=== PATIENT | female | born 1935 | race Caucasian/White ===

== ENCOUNTER 2016-09-04 08:20 | Inpatient (IN) | payer MEDICARE, BC ==
--- NOTE | 2016-09-04 12:37 | PCM.SN ---
- Free Text/Narrative Note: Patient's troponins x3 are negative. Patient will nausea after eating that was relieved by Mylanta and Prilosec.
[2016-09-04] MEDS ORDERED: Lactulose Soln 10 GM/15 ML 30 ML UD Cup PO PRN (13:39)
[2016-09-04] MEDS ORDERED: Vitamin B6-pyridOXINE 100 MG Tab PO SCH (13:45)
[2016-09-04] MEDS: Acetaminophen 325 MG Tab PO PRN ×2 (14:00→20:36)
[2016-09-04] MEDS ORDERED: Carboxymethylcellulose 0.5%/Glycerin 0.9% Ophth Soln 15 ML Bottle EYEBOTH PRN (14:15)
--- NOTE | 2016-09-04 14:22 | PCM.HP ---
H&P History of Present Illness - General Date of Service: 09/04/16 Admit Problem/Dx: Admission Diagnosis/Problem Admission Diagnosis/Problem Total replacement of hip Source of Information: Patient History Limitations: Reports: No limitations - History of Present Illness Initial Comments - Free Text/Narative: This is an 80-year-old female patient that had a right total knee arthroplasty in [place]. She was sent down for rehab, PT/OT. Patient is doing well. She is little bit of pain in her knee. No paresthesias or weakness. She denies chest pain or shortness of breath. right hip and low back Pain Score (Numeric/FACES): 3 - Related Data Allergies/Adverse Reactions: Allergies Allergy/AdvReac Type Severity Reaction Status Date / Time ciprofloxacin [From Cipro] Allergy Swollen Verified 09/04/16 12:33 Tongue ciprofloxacin HCl Allergy Swollen Verified 09/04/16 12:33 [From Cipro] Tongue hydrocodone Allergy Swollen Verified 09/04/16 12:33 Tongue Home Medications: Home Meds Dorzolamide/Timolol [Cosopt 2%-0.5% Ophth Soln] 1 drop EYEBOTH BID 06/21/13 [ History] Latanoprost 1 drop EYEBOTH BEDTIME 06/21/13 [History] Potassium Chloride 10 meq PO DAILY 06/21/13 [History] atorvaSTATin [Lipitor] 20 mg PO DAILY 06/21/13 [History] Acetaminophen [Tylenol] 650 mg PO Q4H PRN 09/04/16 [History] Aspirin [Ecotrin] 325 mg PO BID 09/04/16 [History] Azelastine [Optivar 0.05% Ophth Soln] 1 drop EYEBOTH BID 09/04/16 [History] Calcium Citrate/Vitamin D3 [Citracal + D Maximum Caplet] 1 tab PO DAILY [History] Carboxymethyl/Glycerin/Poly80 [Refresh Optive Advanced Drops] 1 drop OP QID PRN 09/04/16 [History] ClonazePAM [KlonoPIN] 0.5 mg PO BEDTIME PRN 09/04/16 [History] Lactulose [Cephulac] 30 ml PO TID PRN 09/04/16 [History] Multivitamin with Minerals [Multivitamins with Minerals] 1 each PO DAILY [History] Nitroglycerin [Nitrostat] 0.4 mg SL 5XDAY PRN #25 tab.subl 09/04/16 [Rx] Omeprazole Magnesium [Prilosec Otc] 20 mg PO DAILY #30 tablet.dr 09/04/16 [Rx] Triamterene/Hydrochlorothiazid [Triamterene-HCTZ 75-50 MG] 1 tab PO DAILY [History] metFORMIN [Glucophage] 500 mg PO BIDMEALS 09/04/16 [History] Past Medical History HEENT History: Reports: Allergic rhinitis, Glaucoma Cardiovascular History: Reports: High cholesterol, Hypertension Gastrointestinal History: Reports: Chronic constipation, GERD, Hemorrhoids, Hiatal hernia, Irritable bowel syndrome Genitourinary History: Reports: Urinary incontinence [employer] History: Reports: Musculoskeletal History: Reports: Arthritis, Fibromyalgia, Other (see below) Other Musculoskeletal History: NECK, HIP AND KNEES Psychiatric History: Reports: Depression Endocrine/Metabolic History: Reports: Diabetes, type II - Infectious Disease History Infectious Disease History: Reports: Chicken pox, Measles, Mumps, Pertussis ( whooping cough) - Past Surgical History HEENT Surgical History: Reports: Cataract surgery GI Surgical History: Reports: Appendectomy, Colonoscopy, EGD Musculoskeletal Surgical History: Reports: Joint replacement, Other (see below) Other Musculoskeletal Surgeries/Procedures:: right hip Social & Family History - Family History Family Medical History: Noncontributory - Tobacco Use Smoking Status *Q: Never Smoker Second Hand Smoke Exposure: No - Caffeine Use Caffeine Use: Reports: None - Alcohol Use Days Per Week of Alcohol Use: 0 - Recreational Drug Use Recreational Drug Use: No H&P Review of Systems - Review of Systems: Review Of Systems: See Below General: Reports: no symptoms HEENT: Reports: other (Chronic congestion) Pulmonary: Reports: no symptoms Cardiovascular: Reports: no symptoms Gastrointestinal: Reports: No symptoms Genitourinary: Reports: no symptoms Musculoskeletal: Reports: joint pain Skin: Reports: no symptoms Psychiatric: Reports: no symptoms Neurological: Reports: no symptoms Hematologic/Lymphatic: Reports: no symptoms Immunologic: Reports: no symptoms Exam - Exam Exam: See Below - Vital Signs Vital Signs: Last Vital Signs Temp 98.2 F 09/04/16 11:56 Pulse 76 09/04/16 11:56 Resp 18 09/04/16 11:56 BP 105/60 09/04/16 11:56 Pulse Ox 98 09/04/16 11:56 Weight: 160 lb - Exam General: alert, oriented, 4 HEENT: PERRLA, Conjunctiva clear, EOMI, Hearing intact, Posterior pharynx clear , Pupils reactive, TMs clear Neck: supple, trachea midline. No: carotid bruit Lungs: Clear to auscultation, Normal respiratory effort Cardiovascular: regular rate, regular rhythm, normal S1, normal S2. No: systolic murmur, diastolic murmur Abdomen: normal bowel sounds, soft. No: organomegaly, guarding, rigidity, rebound, tenderness Back Exam: normal inspection, full range of motion, NT Extremities: No: cyanosis, calf tenderness, edema Skin: warm, dry Neuro Extensive - Mental Status: alert, oriented x3, normal mood/affect, normal cognition Psychiatric: alert, normal affect, normal mood *Q Meaningful Use (ADM) - VTE *Q VTE Criteria *Q: - Stroke *Q Stroke Criteria *Q: - AMI *Q AMI Criteria *Q: - Problem List (1) S/P total knee arthroplasty SNOMED Code(s): 1587700662279, 264484411, 1611190416900 ICD Code: Z96.659 - PRESENCE OF UNSPECIFIED ARTIFICIAL KNEE JOINT Status: Acute Current Visit: Yes Problem List Initiated/Reviewed/Updated: Yes Orders Last 24hrs: Active Orders 24 hr Category Date Time Status Patient Status [ADT] Routine ADT 09/04/16 11:00 Active Accu Check [Blood Glucose Check, Bedside] [RC] 07,1730 Care 09/04/16 13:41 Active Activity as Tolerated [RC] .Routine Care 09/04/16 12:47 Active Communication Order [RC] Click to Edit Care 09/04/16 12:55 Active Elevate Extremity [RC] ASDIRECTED Care 09/04/16 12:47 Active May Shower [RC] .PRN Care 09/04/16 12:47 Active Ready for Discharge [RC] PER UNIT ROUTINE Care 09/04/16 12:41 Inactive OT Evaluation and Treatment [CONS] Routine Cons 09/04/16 11:00 Active PT Evaluation and Treatment [CONS] Routine Cons 09/04/16 11:00 Active Consistent Carbohydrate Diet [DIET] Diet 09/04/16 Lunch Active Acetaminophen [Tylenol] Med 09/04/16 13:39 Active 650 mg PO Q4H PRN Aspirin [Ecotrin] Med 09/04/16 21:00 Active 325 mg PO BID Calcium Carbonate/Vitamin D3 [Calcium Carbonate/Vitamin Med 09/05/16 09:00 Active D 1250 MG-200 Unit] 1 tab PO DAILY Carboxymethylcellulos/Glycerin [Refresh Optive] Med 09/04/16 14:15 Active 0 ml EYEBOTH QID PRN ClonazePAM [KlonoPIN] Med 09/04/16 13:57 Active 0.5 mg PO BEDTIME PRN Dorzolamide/Timolol [Cosopt 2%-0.5% Ophth Soln] Med 09/04/16 21:00 Active 0 ml EYEBOTH BID HCTZ/Triamterene [Maxzide 50-75 MG] Med 09/05/16 09:00 Active 1 each PO DAILY Ketotifen [Ketotifen 0.025% Ophth Soln] Med 09/04/16 21:00 Active 0 ml EYEBOTH BID Lactulose [Cephulac] Med 09/04/16 13:39 Active 20 gm PO TID PRN Latanoprost [Xalatan 0.005% Ophth Soln] Med 09/04/16 21:00 Active 0 ml EYEBOTH BEDTIME Multivitamins,Therapeutic [Thera] Med 09/05/16 09:00 Active 1 each PO DAILY Omeprazole Med 09/05/16 06:00 Active 20 mg PO 0600 Potassium Chloride [Klor-Con 10] Med 09/05/16 09:00 Active 10 meq PO DAILY atorvaSTATin [Lipitor] Med 09/05/16 09:00 Active 20 mg PO DAILY metFORMIN [Glucophage] Med 09/04/16 18:00 Active 500 mg PO BIDMEALS Antiembolic Hose [OM.PC] Routine Oth 09/04/16 12:47 Ordered Ice Therapy [OM.PC] Routine Oth 09/04/16 12:47 Ordered Occlusive Dressing [OM.PC] Routine Oth 09/04/16 12:47 Ordered Weight bearing status [OM.PC] Routine Oth 09/04/16 12:47 Ordered Resuscitation Status Routine Resus Stat 09/04/16 12:47 Ordered Medication Orders Acetaminophen (Tylenol) 650 mg PO Q4H PRN PRN Reason: Pain Last Admin: 09/04/16 14:00 Dose: 650 mg Aspirin (Ecotrin) 325 mg PO BID [facility] Stop: 10/06/16 09:01 Atorvastatin Calcium (Lipitor) 20 mg PO DAILY [facility] Calcium Carbonate (Calcium Carbonate/Vitamin D 1250 Mg-200 Unit) 1 tab PO DAILY [facility] Carboxymethylcellulose (Refresh Optive) 0 ml EYEBOTH QID PRN PRN Reason: DRY EYES Clonazepam (Klonopin) 0.5 mg PO BEDTIME PRN PRN Reason: Sleep Dorzolamide/Timolol (Cosopt 2%-0.5% Ophth Soln) 0 ml EYEBOTH BID [place] Ketotifen Fumarate (Ketotifen 0.025% Ophth Soln) 0 ml EYEBOTH BID [place] Lactulose (Cephulac) 20 gm PO TID PRN PRN Reason: Constipation Latanoprost (Xalatan 0.005% Ophth Soln) 0 ml EYEBOTH BEDTIME [place] Metformin HCl (Glucophage) 500 mg PO BIDMEALS [facility] Multivitamins (Thera) 1 each PO DAILY [facility] Omeprazole (Omeprazole) 20 mg PO 0600 [place] Potassium Chloride (Klor-Con 10) 10 meq PO DAILY [facility] Triamterene/HCTZ (Maxzide 50-75 Mg) 1 each PO DAILY [facility] Assessment/Plan Comment:: 1. Admitted to swing bed. 2. See orthopedic orders that came from [place]. Reviewed. 3. PT/OT. 4. Diabetic diet with checking blood sugars twice a day. 5. Continue medications that were in [place].
[2016-09-04] MEDS: metFORMIN 500 MG Tab PO SCH (17:21)
[2016-09-04] MEDS: Latanoprost 0.005% Ophth Soln 2.5 ML Bottle EYEBOTH SCH (20:34)
[2016-09-04] MEDS: Aspirin 325 MG Tab.EC PO SCH (20:38)
[2016-09-04] MEDS: Ketotifen 0.025% Ophth Soln 5 ML Bottle EYEBOTH SCH (20:39)
[2016-09-04] MEDS: Dorzolamide/Timolol 2%-0.5% Ophth Soln 10 ML Bottle EYEBOTH SCH (20:40)
[2016-09-04] MEDS: ClonazePAM 0.5 MG Tab PO PRN (21:52)
[2016-09-05] MEDS: Omeprazole 20 MG Cap.CR PO SCH (06:10)
[2016-09-05] MEDS: Acetaminophen 325 MG Tab PO PRN ×2 (07:46→21:09)
[2016-09-05] MEDS: metFORMIN 500 MG Tab PO SCH ×2 (07:48→17:21)
[2016-09-05] MEDS: Dorzolamide/Timolol 2%-0.5% Ophth Soln 10 ML Bottle EYEBOTH SCH ×2 (08:41→21:07)
[2016-09-05] MEDS: Multivitamins,Therapeutic Tab PO SCH (08:42)
[2016-09-05] MEDS: Hydrochlorothiazide/Triamterene 50-75 MG Tab PO SCH (08:42)
[2016-09-05] MEDS: Aspirin 325 MG Tab.EC PO SCH ×2 (08:42→21:08)
[2016-09-05] MEDS: Calcium Carbonate/Vitamin D3 1250 MG-200 Unit Tab PO SCH (08:42)
[2016-09-05] MEDS: Potassium Chloride 10 MEQ Tab.ER PO SCH (08:42)
[2016-09-05] MEDS: atorvaSTATin 20 MG Tab PO SCH (08:42)
[2016-09-05] MEDS: Ketotifen 0.025% Ophth Soln 5 ML Bottle EYEBOTH SCH ×2 (08:45→21:08)
[2016-09-05] MEDS ORDERED: Aspirin 81 MG Tab.Chew PO SCH (09:00)
[2016-09-05] MEDS: Latanoprost 0.005% Ophth Soln 2.5 ML Bottle EYEBOTH SCH (21:09)
[2016-09-05] MEDS: ClonazePAM 0.5 MG Tab PO PRN (21:09)
[2016-09-06] MEDS: Omeprazole 20 MG Cap.CR PO SCH (05:53)
[2016-09-06] MEDS: Dorzolamide/Timolol 2%-0.5% Ophth Soln 10 ML Bottle EYEBOTH SCH ×2 (08:36→20:25)
[2016-09-06] MEDS: Multivitamins,Therapeutic Tab PO SCH (08:36)
[2016-09-06] MEDS: metFORMIN 500 MG Tab PO SCH ×2 (08:36→17:40)
[2016-09-06] MEDS: atorvaSTATin 20 MG Tab PO SCH (08:36)
[2016-09-06] MEDS: Calcium Carbonate/Vitamin D3 1250 MG-200 Unit Tab PO SCH (08:36)
[2016-09-06] MEDS: Aspirin 325 MG Tab.EC PO SCH ×2 (08:36→20:24)
[2016-09-06] MEDS: Hydrochlorothiazide/Triamterene 50-75 MG Tab PO SCH (08:36)
[2016-09-06] MEDS: Ketotifen 0.025% Ophth Soln 5 ML Bottle EYEBOTH SCH ×2 (08:36→20:24)
[2016-09-06] MEDS: Potassium Chloride 10 MEQ Tab.ER PO SCH ×2 (08:37→17:40)
[2016-09-06] MEDS: Acetaminophen 325 MG Tab PO PRN (10:31)
[2016-09-06] MEDS: Latanoprost 0.005% Ophth Soln 2.5 ML Bottle EYEBOTH SCH (20:24)
[2016-09-06] MEDS: ClonazePAM 0.5 MG Tab PO PRN (21:47)
[2016-09-07] MEDS: Omeprazole 20 MG Cap.CR PO SCH (06:00)
[2016-09-07] MEDS: metFORMIN 500 MG Tab PO SCH ×2 (08:24→18:03)
[2016-09-07] MEDS: Calcium Carbonate/Vitamin D3 1250 MG-200 Unit Tab PO SCH (08:25)
[2016-09-07] MEDS: Potassium Chloride 10 MEQ Tab.ER PO SCH ×2 (08:25→18:03)
[2016-09-07] MEDS: Dorzolamide/Timolol 2%-0.5% Ophth Soln 10 ML Bottle EYEBOTH SCH ×2 (08:25→20:44)
[2016-09-07] MEDS: Aspirin 325 MG Tab.EC PO SCH ×2 (08:26→20:46)
[2016-09-07] MEDS: Ketotifen 0.025% Ophth Soln 5 ML Bottle EYEBOTH SCH ×2 (08:26→20:47)
[2016-09-07] MEDS: atorvaSTATin 20 MG Tab PO SCH (08:27)
[2016-09-07] MEDS: Hydrochlorothiazide/Triamterene 50-75 MG Tab PO SCH (08:27)
[2016-09-07] MEDS: Multivitamins,Therapeutic Tab PO SCH (08:27)
[2016-09-07] MEDS ORDERED: Aluminum Hydroxide/Magnesium Hydroxide Susp 30 ML Cup PO PRN (08:55)
[2016-09-07] MEDS ORDERED: Ondansetron 4 MG Tab.DIS PO PRN (08:56)
[2016-09-07] MEDS: Latanoprost 0.005% Ophth Soln 2.5 ML Bottle EYEBOTH SCH (20:47)
[2016-09-07] MEDS: ClonazePAM 0.5 MG Tab PO PRN (20:48)
[2016-09-08] MEDS: Omeprazole 20 MG Cap.CR PO SCH (05:15)
[2016-09-08] MEDS: Dorzolamide/Timolol 2%-0.5% Ophth Soln 10 ML Bottle EYEBOTH SCH ×2 (08:16→20:59)
[2016-09-08] MEDS: Potassium Chloride 10 MEQ Tab.ER PO SCH ×2 (08:17→18:33)
[2016-09-08] MEDS: metFORMIN 500 MG Tab PO SCH (08:17)
[2016-09-08] MEDS: Calcium Carbonate/Vitamin D3 1250 MG-200 Unit Tab PO SCH (08:18)
[2016-09-08] MEDS: Multivitamins,Therapeutic Tab PO SCH (08:23)
[2016-09-08] MEDS: Hydrochlorothiazide/Triamterene 50-75 MG Tab PO SCH (08:24)
[2016-09-08] MEDS: atorvaSTATin 20 MG Tab PO SCH (08:24)
[2016-09-08] MEDS: Aspirin 325 MG Tab.EC PO SCH ×2 (08:25→20:58)
[2016-09-08] MEDS: Ketotifen 0.025% Ophth Soln 5 ML Bottle EYEBOTH SCH ×2 (08:26→21:07)
--- NOTE | 2016-09-08 15:43 | PN ---
DATE SEEN: 09/08/2016 SUBJECTIVE: This is an 80-year-old female with a history of type 2 diabetes mellitus and recent right total hip arthroplasty. She is complaining of loose stools yesterday and today. She has had no fever, chills, or night sweats. Denies any significant abdominal pain. She says she does have a history of irritable bowel syndrome. She does use metformin along with omeprazole. No blood or pus in the stools. No significant cramps or other abnormalities have been noted. She said she did get a fair amount of cathartic medication while in [place]; that was almost a week ago, and she is on no stool softeners or laxatives at least here. OBJECTIVE: GENERAL: She appears quite comfortable in no acute distress. VITAL SIGNS: Afebrile. Blood pressure 112/52, pulse is 76 and regular, and respirations were 18. HEENT: Unremarkable. CHEST: Clear. CARDIOVASCULAR: Unremarkable without gallop or rub. ABDOMEN: Soft. There was no specific point tenderness. No rebound or rigidity. EXTREMITIES: Negative. IMPRESSION: Loose stools may be either viral versus combination of her medications, including the omeprazole and metformin. PLAN: Because of her age, I have advised her that we may want to discontinue the metformin anyway. Her blood sugars have been borderline elevated, despite the medications, and in order to be effective, we actually have to increase her medicines. At least for now, we are going to stop the metformin and see if the loose stools improve. I will switch over to glimepiride 1 mg in the morning and watch her blood sugars. We will follow from there. /[id number] /MODL
[2016-09-08] MEDS: ClonazePAM 0.5 MG Tab PO PRN (20:57)
[2016-09-08] MEDS: Latanoprost 0.005% Ophth Soln 2.5 ML Bottle EYEBOTH SCH (21:07)
[2016-09-09] MEDS: Omeprazole 20 MG Cap.CR PO SCH (06:32)
[2016-09-09] MEDS: Glimepiride 2 MG Tab PO SCH (09:26)
[2016-09-09] MEDS: Potassium Chloride 10 MEQ Tab.ER PO SCH ×2 (09:26→17:53)
[2016-09-09] MEDS: Multivitamins,Therapeutic Tab PO SCH (09:27)
[2016-09-09] MEDS: Hydrochlorothiazide/Triamterene 50-75 MG Tab PO SCH (09:27)
[2016-09-09] MEDS: atorvaSTATin 20 MG Tab PO SCH (09:27)
[2016-09-09] MEDS: Aspirin 325 MG Tab.EC PO SCH ×2 (09:27→21:16)
[2016-09-09] MEDS: Ketotifen 0.025% Ophth Soln 5 ML Bottle EYEBOTH SCH ×2 (09:27→21:17)
[2016-09-09] MEDS: Dorzolamide/Timolol 2%-0.5% Ophth Soln 10 ML Bottle EYEBOTH SCH ×2 (09:27→21:16)
[2016-09-09] MEDS: Calcium Carbonate/Vitamin D3 1250 MG-200 Unit Tab PO SCH (09:27)
[2016-09-09] MEDS: Acetaminophen 325 MG Tab PO PRN ×2 (09:29→21:31)
[2016-09-09] MEDS: Latanoprost 0.005% Ophth Soln 2.5 ML Bottle EYEBOTH SCH (21:25)
[2016-09-09] MEDS: ClonazePAM 0.5 MG Tab PO PRN (21:27)
[2016-09-10] MEDS: Omeprazole 20 MG Cap.CR PO SCH (06:30)
[2016-09-10] MEDS: Glimepiride 2 MG Tab PO SCH (08:19)
[2016-09-10] MEDS: Aspirin 325 MG Tab.EC PO SCH ×2 (08:21→20:27)
[2016-09-10] MEDS: Potassium Chloride 10 MEQ Tab.ER PO SCH ×2 (08:21→18:57)
[2016-09-10] MEDS: Calcium Carbonate/Vitamin D3 1250 MG-200 Unit Tab PO SCH (08:21)
[2016-09-10] MEDS: Hydrochlorothiazide/Triamterene 50-75 MG Tab PO SCH (08:22)
[2016-09-10] MEDS: Multivitamins,Therapeutic Tab PO SCH (08:22)
[2016-09-10] MEDS: Acetaminophen 325 MG Tab PO PRN ×2 (08:22→15:25)
[2016-09-10] MEDS: atorvaSTATin 20 MG Tab PO SCH (08:22)
[2016-09-10] MEDS: Dorzolamide/Timolol 2%-0.5% Ophth Soln 10 ML Bottle EYEBOTH SCH ×2 (08:24→20:24)
[2016-09-10] MEDS: Ketotifen 0.025% Ophth Soln 5 ML Bottle EYEBOTH SCH ×2 (08:25→20:27)
[2016-09-10] MEDS: Latanoprost 0.005% Ophth Soln 2.5 ML Bottle EYEBOTH SCH (20:27)
[2016-09-10] MEDS: ClonazePAM 0.5 MG Tab PO PRN (21:04)
[2016-09-11] MEDS: Omeprazole 20 MG Cap.CR PO SCH (06:18)
[2016-09-11] MEDS: Glimepiride 2 MG Tab PO SCH (08:03)
[2016-09-11] MEDS: Potassium Chloride 10 MEQ Tab.ER PO SCH ×2 (08:05→18:52)
[2016-09-11] MEDS: Calcium Carbonate/Vitamin D3 1250 MG-200 Unit Tab PO SCH (08:05)
[2016-09-11] MEDS: Dorzolamide/Timolol 2%-0.5% Ophth Soln 10 ML Bottle EYEBOTH SCH ×2 (08:06→20:27)
[2016-09-11] MEDS: Aspirin 325 MG Tab.EC PO SCH ×2 (08:07→20:28)
[2016-09-11] MEDS: atorvaSTATin 20 MG Tab PO SCH (08:08)
[2016-09-11] MEDS: Multivitamins,Therapeutic Tab PO SCH (08:09)
[2016-09-11] MEDS: Hydrochlorothiazide/Triamterene 50-75 MG Tab PO SCH (08:09)
[2016-09-11] MEDS: Ketotifen 0.025% Ophth Soln 5 ML Bottle EYEBOTH SCH ×2 (08:10→20:27)
[2016-09-11] MEDS: Acetaminophen 325 MG Tab PO PRN (18:56)
[2016-09-11] MEDS: Latanoprost 0.005% Ophth Soln 2.5 ML Bottle EYEBOTH SCH (20:28)
[2016-09-11] MEDS: ClonazePAM 0.5 MG Tab PO PRN (21:46)
[2016-09-12] MEDS: Omeprazole 20 MG Cap.CR PO SCH (06:24)
[2016-09-12] MEDS: Glimepiride 2 MG Tab PO SCH (09:15)
[2016-09-12] MEDS: Multivitamins,Therapeutic Tab PO SCH (09:15)
[2016-09-12] MEDS: Potassium Chloride 10 MEQ Tab.ER PO SCH (09:15)
[2016-09-12] MEDS: Ketotifen 0.025% Ophth Soln 5 ML Bottle EYEBOTH SCH (09:16)
[2016-09-12] MEDS: Aspirin 325 MG Tab.EC PO SCH (09:16)
[2016-09-12] MEDS: Dorzolamide/Timolol 2%-0.5% Ophth Soln 10 ML Bottle EYEBOTH SCH (09:16)
[2016-09-12] MEDS: Calcium Carbonate/Vitamin D3 1250 MG-200 Unit Tab PO SCH (09:16)
[2016-09-12] MEDS: Hydrochlorothiazide/Triamterene 50-75 MG Tab PO SCH (09:17)
[2016-09-12] MEDS: atorvaSTATin 20 MG Tab PO SCH (09:17)
[2016-09-12 10:58] VITALS: BP 109/61
--- NOTE | 2016-09-12 11:44 | PN ---
DATE SEEN: 09/12/2016 SUBJECTIVE: Jeri Jones is an 80-year-old female seen today as a swing-bed patient. She underwent right total hip arthroplasty on 09/04/2016, transferred here on 09/08/2016, comfortable and doing well. Medications reviewed and appropriate. Laboratory studies, random glucose are noted. Metformin had been stopped due to diarrhea. Amaryl has been instituted. Otherwise, doing well. OBJECTIVE: VITAL SIGNS: 36.9, 74, 109/61, 16 is the respiration, 98%. GENERAL: Appears comfortable. CHEST: Clear. HEART: Regular. ABDOMEN: Right hip surgical scar well healed. No complicating issues. ASSESSMENT: Status post right total hip arthroplasty, rehab in place. PLAN: Discharge today, complementary care and well being, follow up with provider of record in [place]. /[id number] CUATE/MELCHOR
--- NOTE | 2016-09-15 15:31 | DISCH ---
DISCHARGE DATE: 09/12/2016 HISTORY: Jeri Jones is an 80-year-old female, who had a recent stay at [facility] for rehab of right total hip arthroplasty. Doing well. PT has been actively involved. Ambulation skills have been comfortable. Pain has been controlled with Tylenol, and she is in good spirits. LABORATORY STUDIES: Random glucoses only. PHYSICAL EXAMINATION: CHEST: Clear. HEART: Regular. ABDOMEN: Benign. EXTREMITIES: Wound right lateral hip without complaint. Edges well apposed. No complicating issue. ASSESSMENT: Rehab, right total hip arthroplasty. PLAN: Discharge home with lengthy instructions, Home Health will be involved. OT, PT, RN, complementary care and well being, proceed accordingly. /[id number] CUATE/MELCHOR
== END 2016-09-12 14:45 | disposition home health service (06) | DRG 561 ==
LOC: FB.MS 11:53
PROVIDERS: ADMIT Family Medicine; ATTEND Family Medicine
DX: Z47.1 Aftercare following joint replacement surgery (principal); Z96.641 Presence of right artificial hip joint; H40.9 Unspecified glaucoma; E78.5 Hyperlipidemia, unspecified; I10 Essential (primary) hypertension; K21.9 Gastro-esophageal reflux disease without esophagitis; M79.7 Fibromyalgia; F32.9 Major depressive disorder, single episode, unspecified; E11.9 Type 2 diabetes mellitus without complications; Z79.84 Long term (current) use of oral hypoglycemic drugs; R19.7 Diarrhea, unspecified; K58.9 Irritable bowel syndrome, unspecified
CPT/HCPCS: 36415; 80048; 82962; 85027; 97110-GP; 97112-GP; 97116-GP; 97162-GP; 97165-GO; 97530-GO; 97530-GP; 97535-GO; A9270-GY

== ENCOUNTER 2017-04-13 11:03 | Inpatient (IN) | payer MEDICARE, BC ==
[2017-04-13] MEDS ORDERED: FLU Vacc QS 2017-18 (36mos UP)/PF 60 MCG/0.5 ML Syringe IM ONE ×2 (14:06→14:15)
[2017-04-13] MEDS ORDERED: traMADol 50 MG Tab PO PRN (20:02)
[2017-04-13] MEDS ORDERED: Carboxymethylcellulose 0.5%/Glycerin 0.9% Ophth Soln 15 ML Bottle EYEBOTH PRN (20:45)
[2017-04-13] MEDS ORDERED: Latanoprost 0.005% Ophth Soln 2.5 ML Bottle EYEBOTH SCH (21:00)
[2017-04-13] MEDS: Acetaminophen 325 MG Tab PO SCH (22:14)
[2017-04-13] MEDS: Aspirin 325 MG Tab.EC PO SCH (22:15)
[2017-04-13] MEDS: ClonazePAM 1 MG Tab PO PRN (22:23)
[2017-04-14] MEDS: Azelastine 0.05% Ophth Soln 6 ML Bottle EYEBOTH SCH ×3 (00:17→20:52)
[2017-04-14] MEDS: Dorzolamide/Timolol 2%-0.5% Ophth Soln 10 ML Bottle EYEBOTH SCH ×3 (00:17→20:53)
[2017-04-14] MEDS: Celecoxib 200 MG Cap PO SCH ×3 (00:21→20:51)
[2017-04-14] MEDS: Acetaminophen 325 MG Tab PO SCH ×4 (02:17→20:51)
[2017-04-14] MEDS: Pantoprazole 40 MG Tab.CR PO SCH (06:30)
[2017-04-14] MEDS ORDERED: Carboxymethylcellulose 0.5%/Glycerin 0.9% Ophth Soln 15 ML Bottle EYEBOTH PRN (08:19)
[2017-04-14] MEDS: glipiZIDE 5 MG Tab PO SCH ×2 (09:04→17:15)
[2017-04-14] MEDS: Hydrochlorothiazide/Triamterene 50-75 MG Tab PO SCH (09:05)
[2017-04-14] MEDS: Potassium Chloride 10 MEQ Tab.ER PO SCH (09:05)
[2017-04-14] MEDS: Citalopram 20 MG Tab PO SCH (09:05)
[2017-04-14] MEDS: Aspirin 325 MG Tab.EC PO SCH ×2 (09:05→20:52)
[2017-04-14] MEDS: Vitamin B6-pyridOXINE 100 MG Tab PO SCH (09:06)
[2017-04-14] MEDS: metFORMIN 1,000 MG Tab PO SCH ×2 (09:10→17:15)
[2017-04-14] MEDS: atorvaSTATin 20 MG Tab PO SCH (09:10)
[2017-04-14] MEDS ORDERED: hydrOXYzine HCl 25 MG Tab PO PRN (10:28)
--- NOTE | 2017-04-14 13:51 | PREOP ---
ADMISSION DATE: 04/13/2017 HISTORY OF PRESENT ILLNESS: Jeri Jones is an 81-year-old female, admitted for postoperative care. Underwent left total hip arthroplasty. Doing well, at regard PT/OT actively involved. Vital signs are stable. No complicating issues. Wound was examined and free of any pathology. All looks well. /[id number] CUATE/MELCHOR
--- NOTE | 2017-04-14 16:20 | HP ---
ADMISSION DATE: 04/13/2017 HISTORY OF PRESENT ILLNESS: Jeri Jones is an 81-year-old, female, admitted to [facility]. She had a recent acute care hospital stay, 04/09/2017 to 04/13/2017, under the care of Dr. Ashwin Fulton, Orthopedics. She underwent left total hip arthroplasty, acute blood loss anemia and no transfusion required, medical treatment of her diabetes, and did well. Please see discharge summary provided by Yecenia Echols, adult hospitalist; Dr. Farris; and Dr. Fulton, surgical provider of record. Discharged in good condition. She was admitted to [facility] for swing bed care. Feeling well in that regard. Pain is reasonably well controlled. MEDICATIONS: Please see medication reconciliation list. ALLERGIES: Ciprofloxacin, hydrocodone. No other environmental or latex allergies. PAST MEDICAL HISTORY: Significant for multiple surgeries including right total hip arthroplasty, August 2016; bilateral cataract surgery; abdominal hysterectomy; bilateral oophorectomy remotely. Ongoing medical problems include treated hypertension, mood disorder, hyperlipidemia, and diabetes mellitus. SOCIAL HISTORY: Resident of [facility], worked in the past [employer] Never smoked. Nil alcohol consumption. No illicit drug use. . REVIEW OF SYSTEMS: Feeling generally well. Pain is controlled. PHYSICAL EXAMINATION: VITAL SIGNS: Stable and documented. CONSTITUTIONAL: Appears well. HEENT: Reveal funduscopic benign. Bright TMs. Clear nasal discharge. Mouth and oropharynx clear. CHEST: Clear in all lung harrison. HEART: Regular without ectopy or murmur. ABDOMEN: Benign. No hepatosplenomegaly. Well-healed surgical scar. Left hip surgical scar intact. Minimal ecchymoses. EXTREMITIES: Well perfused. Reflexes symmetric. Sensation intact. ASSESSMENT: Postoperative care, total hip arthroplasty, rehab in place. PLAN: Medications, care, and treatment appropriate. Intervention care, close observation. Pain control, PT, and therapy. /[id number] CUATE/MELCHOR
[2017-04-14] MEDS: Latanoprost 0.005% Ophth Soln 2.5 ML Bottle EYEBOTH SCH (20:53)
[2017-04-14] MEDS: ClonazePAM 1 MG Tab PO PRN (22:20)
[2017-04-15] MEDS: Acetaminophen 325 MG Tab PO SCH ×4 (02:29→21:03)
[2017-04-15] MEDS: Pantoprazole 40 MG Tab.CR PO SCH (06:34)
[2017-04-15] MEDS: metFORMIN 1,000 MG Tab PO SCH ×2 (08:45→17:34)
[2017-04-15] MEDS: glipiZIDE 5 MG Tab PO SCH ×2 (08:45→17:34)
[2017-04-15] MEDS: Celecoxib 200 MG Cap PO SCH ×2 (08:47→21:04)
[2017-04-15] MEDS: atorvaSTATin 20 MG Tab PO SCH (08:47)
[2017-04-15] MEDS: Dorzolamide/Timolol 2%-0.5% Ophth Soln 10 ML Bottle EYEBOTH SCH ×2 (08:47→21:04)
[2017-04-15] MEDS: Aspirin 325 MG Tab.EC PO SCH ×2 (08:47→21:04)
[2017-04-15] MEDS: Citalopram 20 MG Tab PO SCH (08:47)
[2017-04-15] MEDS: Potassium Chloride 10 MEQ Tab.ER PO SCH (08:47)
[2017-04-15] MEDS: Azelastine 0.05% Ophth Soln 6 ML Bottle EYEBOTH SCH ×2 (08:48→21:04)
[2017-04-15] MEDS: Vitamin B6-pyridOXINE 100 MG Tab PO SCH (08:48)
[2017-04-15] MEDS: Hydrochlorothiazide/Triamterene 50-75 MG Tab PO SCH (08:48)
--- NOTE | 2017-04-15 10:41 | PN ---
DATE SEEN: 04/15/2017 SUBJECTIVE: Jeri Jones is an 81-year-old, female, admitted with postoperative care. Underwent a right total hip arthroplasty under the care of Dr. Ashwin Fulton [facility]. Doing well in that regard. Up, ambulating, doing well. PT/OT is actively involved. Accu-Cheks: 157, 182, 192, 189, and 144. MEDICATIONS: Reviewed and appropriate. She is on glipizide and metformin for her diabetes. No interval change in the meantime. PHYSICAL EXAMINATION: VITAL SIGNS: Stable. MUSCULOSKELETAL: Wound healing well without conflict. Postoperative recovery and rehab. Total hip arthroplasty. PLAN: Medications, care, and treatment on board. Analgesics appropriate. Physical therapy in place. /[id number] CUATE/MELCHOR
[2017-04-15] MEDS: Latanoprost 0.005% Ophth Soln 2.5 ML Bottle EYEBOTH SCH (21:04)
[2017-04-15] MEDS: ClonazePAM 1 MG Tab PO PRN (22:45)
[2017-04-16] MEDS: Acetaminophen 325 MG Tab PO SCH ×4 (02:01→21:05)
[2017-04-16] MEDS: Pantoprazole 40 MG Tab.CR PO SCH (06:31)
[2017-04-16] MEDS: glipiZIDE 5 MG Tab PO SCH ×2 (08:38→18:47)
[2017-04-16] MEDS: metFORMIN 1,000 MG Tab PO SCH ×2 (08:38→18:48)
[2017-04-16] MEDS: Celecoxib 200 MG Cap PO SCH ×2 (08:39→21:07)
[2017-04-16] MEDS: Citalopram 20 MG Tab PO SCH (08:40)
[2017-04-16] MEDS: Dorzolamide/Timolol 2%-0.5% Ophth Soln 10 ML Bottle EYEBOTH SCH ×2 (08:40→21:07)
[2017-04-16] MEDS: Aspirin 325 MG Tab.EC PO SCH ×2 (08:41→21:07)
[2017-04-16] MEDS: Potassium Chloride 10 MEQ Tab.ER PO SCH (08:41)
[2017-04-16] MEDS: Azelastine 0.05% Ophth Soln 6 ML Bottle EYEBOTH SCH ×2 (08:42→21:08)
[2017-04-16] MEDS: atorvaSTATin 20 MG Tab PO SCH (08:42)
[2017-04-16] MEDS: Hydrochlorothiazide/Triamterene 50-75 MG Tab PO SCH (08:42)
[2017-04-16] MEDS: Vitamin B6-pyridOXINE 100 MG Tab PO SCH (08:43)
--- NOTE | 2017-04-16 11:21 | PN ---
DATE SEEN: 04/16/2017 SUBJECTIVE: Jeri Jones is an 81-year-old female seen today for followup. She had a recent left total hip arthroplasty. Dr. Fulton provider of record. Doing well. PT/OT, support services ongoing and doing well in that regard. OBJECTIVE: Wound was examined, free of complicating issue. In good spirits otherwise. LABORATORY STUDIES: Accu-Cheks are reasonable at 128, 150, 150, and 133. ASSESSMENT AND PLAN: We will continue present care and therapy plan until Thursday. /[id number] CUATE/MELCHOR
[2017-04-16] MEDS: Latanoprost 0.005% Ophth Soln 2.5 ML Bottle EYEBOTH SCH (21:08)
[2017-04-16] MEDS: ClonazePAM 1 MG Tab PO PRN (21:32)
[2017-04-17] MEDS: Acetaminophen 325 MG Tab PO SCH ×4 (02:16→19:49)
[2017-04-17] MEDS: Pantoprazole 40 MG Tab.CR PO SCH (06:34)
[2017-04-17] MEDS: metFORMIN 1,000 MG Tab PO SCH ×2 (08:34→18:02)
[2017-04-17] MEDS: glipiZIDE 5 MG Tab PO SCH ×2 (08:34→18:02)
[2017-04-17] MEDS: Dorzolamide/Timolol 2%-0.5% Ophth Soln 10 ML Bottle EYEBOTH SCH ×2 (08:35→21:31)
[2017-04-17] MEDS: Citalopram 20 MG Tab PO SCH (08:35)
[2017-04-17] MEDS: Celecoxib 200 MG Cap PO SCH ×2 (08:35→21:42)
[2017-04-17] MEDS: Aspirin 325 MG Tab.EC PO SCH ×2 (08:35→21:23)
[2017-04-17] MEDS: Azelastine 0.05% Ophth Soln 6 ML Bottle EYEBOTH SCH ×2 (08:36→21:26)
[2017-04-17] MEDS: Potassium Chloride 10 MEQ Tab.ER PO SCH (08:36)
[2017-04-17] MEDS: atorvaSTATin 20 MG Tab PO SCH (08:36)
[2017-04-17] MEDS: Hydrochlorothiazide/Triamterene 50-75 MG Tab PO SCH (08:36)
[2017-04-17] MEDS: Vitamin B6-pyridOXINE 100 MG Tab PO SCH (08:37)
--- NOTE | 2017-04-17 08:38 | PN ---
DATE SEEN: 04/17/2017 SUBJECTIVE: Jeri Jones is a delightful 81-year-old female seen today for review. In the swing bed for postoperative left total hip arthroplasty, doing well in terms of pain and discomfort. Up ambulating and doing well. PT and OT are comfortable with her well being. Glucose is comfortable 133, 127, 118, 143. Meds reviewed and appropriate. OBJECTIVE: VITAL SIGNS: Noted. EXTREMITIES: Lateral hip wound dressing removed, healing well. POSTOPERATIVE CARE: Left total hip arthroplasty, rehab in place. PLAN: All looks well, continue intervention and care. Plan discharge on Thursday. ADDENDUM: Cold sore, left upper lip will be treated accordingly. /[id number] CUATE/MELCHOR
[2017-04-17] MEDS: valACYclovir 1,000 MG Tab PO SCH ×3 (09:27→21:22)
[2017-04-17] MEDS ORDERED: Celecoxib 100 MG Cap ONE (21:18)
[2017-04-17] MEDS: Latanoprost 0.005% Ophth Soln 2.5 ML Bottle EYEBOTH SCH (21:21)
[2017-04-17] MEDS: ClonazePAM 1 MG Tab PO PRN (21:32)
[2017-04-18] MEDS: Acetaminophen 325 MG Tab PO SCH ×3 (06:50→14:18)
[2017-04-18] MEDS: Pantoprazole 40 MG Tab.CR PO SCH (07:47)
[2017-04-18] MEDS: Azelastine 0.05% Ophth Soln 6 ML Bottle EYEBOTH SCH ×2 (08:58→21:10)
[2017-04-18] MEDS: Dorzolamide/Timolol 2%-0.5% Ophth Soln 10 ML Bottle EYEBOTH SCH ×2 (08:58→21:09)
[2017-04-18] MEDS: metFORMIN 1,000 MG Tab PO SCH ×2 (08:59→17:50)
[2017-04-18] MEDS: glipiZIDE 5 MG Tab PO SCH ×2 (08:59→17:50)
[2017-04-18] MEDS: Citalopram 20 MG Tab PO SCH (09:02)
[2017-04-18] MEDS: Potassium Chloride 10 MEQ Tab.ER PO SCH (09:03)
[2017-04-18] MEDS: atorvaSTATin 20 MG Tab PO SCH (09:03)
[2017-04-18] MEDS: Aspirin 325 MG Tab.EC PO SCH ×2 (09:03→21:10)
[2017-04-18] MEDS: Hydrochlorothiazide/Triamterene 50-75 MG Tab PO SCH (09:03)
[2017-04-18] MEDS: Vitamin B6-pyridOXINE 100 MG Tab PO SCH (09:04)
[2017-04-18] MEDS: Celecoxib 200 MG Cap PO SCH (09:07)
[2017-04-18] MEDS ORDERED: Acetaminophen 325 MG Tab PO PRN (19:28)
[2017-04-18] MEDS: Latanoprost 0.005% Ophth Soln 2.5 ML Bottle EYEBOTH SCH (21:11)
[2017-04-18] MEDS: ClonazePAM 1 MG Tab PO PRN (22:14)
[2017-04-19] MEDS: Pantoprazole 40 MG Tab.CR PO SCH (08:53)
[2017-04-19] MEDS: Citalopram 20 MG Tab PO SCH (08:53)
[2017-04-19] MEDS: glipiZIDE 5 MG Tab PO SCH ×2 (08:53→18:55)
[2017-04-19] MEDS: metFORMIN 1,000 MG Tab PO SCH ×2 (08:53→18:55)
[2017-04-19] MEDS: Azelastine 0.05% Ophth Soln 6 ML Bottle EYEBOTH SCH ×2 (08:54→20:29)
[2017-04-19] MEDS: Aspirin 325 MG Tab.EC PO SCH ×2 (08:54→20:29)
[2017-04-19] MEDS: Vitamin B6-pyridOXINE 100 MG Tab PO SCH (08:54)
[2017-04-19] MEDS: Dorzolamide/Timolol 2%-0.5% Ophth Soln 10 ML Bottle EYEBOTH SCH ×2 (08:54→20:29)
[2017-04-19] MEDS: atorvaSTATin 20 MG Tab PO SCH (08:55)
[2017-04-19] MEDS: Potassium Chloride 10 MEQ Tab.ER PO SCH (08:55)
[2017-04-19] MEDS: Hydrochlorothiazide/Triamterene 50-75 MG Tab PO SCH (08:55)
[2017-04-19] MEDS: Latanoprost 0.005% Ophth Soln 2.5 ML Bottle EYEBOTH SCH (20:29)
[2017-04-19] MEDS: ClonazePAM 1 MG Tab PO PRN (21:34)
[2017-04-20] MEDS: glipiZIDE 5 MG Tab PO SCH (08:18)
[2017-04-20] MEDS: Pantoprazole 40 MG Tab.CR PO SCH (08:18)
[2017-04-20] MEDS: Dorzolamide/Timolol 2%-0.5% Ophth Soln 10 ML Bottle EYEBOTH SCH (08:50)
[2017-04-20] MEDS: metFORMIN 1,000 MG Tab PO SCH (08:50)
[2017-04-20] MEDS: Aspirin 325 MG Tab.EC PO SCH (08:51)
[2017-04-20] MEDS: Potassium Chloride 10 MEQ Tab.ER PO SCH (08:51)
[2017-04-20] MEDS: atorvaSTATin 20 MG Tab PO SCH (08:52)
[2017-04-20] MEDS: Hydrochlorothiazide/Triamterene 50-75 MG Tab PO SCH (08:53)
[2017-04-20] MEDS: Vitamin B6-pyridOXINE 100 MG Tab PO SCH (08:54)
[2017-04-20] MEDS: Azelastine 0.05% Ophth Soln 6 ML Bottle EYEBOTH SCH (08:54)
[2017-04-20] MEDS: Citalopram 20 MG Tab PO SCH (08:55)
--- NOTE | 2017-04-20 10:20 | PCM.DCSUM1 ---
Discharge Summary - Hospital Course Free Text/Narrative:: Patient is an 81-year-old female who was admitted after a total hip arthroplasty for swing bed status for PT and OT. She is ready for discharge today. Vital signs are stable. Patient denies chest pain, shortness of breath, nausea, vomiting, does have occasional loose stools but that's been about once or twice a day. No dizziness. Feels ready to go home. Head is atraumatic, normocephalic. Pupils equally round and reactive. She does have a healing scab on the upper lip. Lungs clear to auscultation, heart tones regular with normal rate and rhythm, no murmurs. Trace pedal edema on the left than on the right. Assessment/plan: Status post total left hip arthroplasty. Ready for discharge from swing bed status. Recommend patient continue on aspirin 325 mg by mouth twice a day times a total of 30 days from the time of surgery which would be about May 11. She can then resume her usual aspirin although I suggested to her that she discuss with her doctor going to an 81 mg enteric-coated aspirin rather than 325. It's not clear to me what the indication is for the higher dose and at her age she is at increased risk for bleeding or ulcers. - Discharge Data Discharge Date: 04/20/17 Discharge Disposition: Home, Self-Care 01 Condition: Good - Patient Summary/Data Consults: Consultations 04/13/17 13:58 OT Evaluation and Treatment [CONS] Routine Please Evaluate and Treat. OT Reason for Consult: ADL's This query below is only for informational purposes and is not editable. PT Evaluation and Treatment [CONS] Routine Please Evaluate and Treat. PT Reason for Consult: Strengthening This query below is only for informational purposes and is not editable. - Patient Instructions Diet: Heart Healthy Diet, Low Sodium Activity: As Tolerated - Discharge Plan Home Medications: Home Meds Dorzolamide/Timolol [Cosopt 2%-0.5% Ophth Soln] 1 drop EYEBOTH BID 06/21/13 [ History] Latanoprost 1 drop EYEBOTH BEDTIME 06/21/13 [History] Potassium Chloride 10 meq PO DAILY 06/21/13 [History] atorvaSTATin [Lipitor] 20 mg PO DAILY 06/21/13 [History] Azelastine [Optivar 0.05% Ophth Soln] 1 drop EYEBOTH BID 09/04/16 [History] Calcium Citrate/Vitamin D3 [Citracal + D Maximum Caplet] 1 tab PO DAILY [History] Carboxymethyl/Glycerin/Poly80 [Refresh Optive Advanced Drops] 1 drop EYEBOTH Q4H PRN 09/04/16 [History] ClonazePAM [KlonoPIN] 1 - 2 mg PO BEDTIME PRN 09/04/16 [History] Omeprazole Magnesium [Prilosec Otc] 20 mg PO DAILY #30 tablet. 09/04/16 [Rx] Triamterene/Hydrochlorothiazid [Triamterene-HCTZ 75-50 MG] 1 tab PO DAILY [History] Citalopram [Citalopram HBr] 20 mg PO DAILY 04/13/17 [History] Pyridoxine HCl [Vitamin B-6] 100 mg PO DAILY 04/13/17 [History] Sennosides/Docusate Sodium [Senna S Tablet] 2 tab PO BEDTIME 04/13/17 [History] glipiZIDE [Glucotrol] 2.5 mg PO BIDMEALS 04/13/17 [History] metFORMIN [Glucophage] 1,000 mg PO BIDMEALS 04/13/17 [History] Acetaminophen [Tylenol] 650 mg PO Q6H PRN tablet 04/20/17 [Rx] Aspirin 325 mg PO DAILY tablet 04/20/17 [Rx] Aspirin [Ecotrin] 325 mg PO BID tab.ec 04/20/17 [Rx] Patient Handouts: Incision Care, Fall Prevention in the Home, Deep Vein Thrombosis - Discharge Summary/Plan Comment DC Time >30 min.: No - General Info Date of Service: 04/20/17 Subjective Update: Patient doing well today. Has no concerns. Ambulating well, no CP, no SOB, no N/V/D. Ready for discharge. Discussed DVT prophylaxis with a month of 325 mg po BID aspirin, enteric coated. Should have hgb rechecked at some point as an outpatient as last check was still low at 11. - Patient Data Vitals - Most Recent: Last Vital Signs Temp 36.6 C 04/19/17 09:00 Pulse 79 04/19/17 09:00 Resp 16 04/19/17 09:00 BP 135/67 04/19/17 09:00 Pulse Ox 97 04/19/17 09:00 Weight - Most Recent: 84.964 kg Lab Results - Last 24 hrs: Laboratory Results - last 24 hr 04/19/17 04/20/17 Range/Units 17:15 06:15 POC Glucose 99 120 H (80-116) mg/dL Med Orders - Current: Current Medications Acetaminophen (Tylenol) 650 mg PO Q6H PRN PRN Reason: Pain Last Admin: 04/20/17 01:41 Dose: 650 mg Aspirin (Ecotrin) 325 mg PO BID [facility] Stop: 05/12/17 21:01 Last Admin: 04/20/17 08:51 Dose: 325 mg Aspirin (Aspirin) 325 mg PO DAILY [facility] Atorvastatin Calcium (Lipitor) 20 mg PO DAILY [facility] Last Admin: 04/20/17 08:52 Dose: 20 mg Azelastine HCl (Optivar 0.05% Ophth Soln) 0 ml EYEBOTH BID [facility] Last Admin: 04/20/17 08:54 Dose: 1 drop Carboxymethylcellulose (Refresh Optive) 0 ml EYEBOTH Q4H PRN PRN Reason: Dry Eyes Citalopram Hydrobromide (Celexa) 20 mg PO DAILY [facility] Last Admin: 04/20/17 08:55 Dose: 20 mg Clonazepam (Klonopin) 1 - 2 mg PO BEDTIME PRN PRN Reason: Insomnia Last Admin: 04/19/17 21:34 Dose: 1 mg Dorzolamide/Timolol (Cosopt 2%-0.5% Ophth Soln) 0 ml EYEBOTH BID [facility] Last Admin: 04/20/17 08:50 Dose: 1 drop Glipizide (Glucotrol) 2.5 mg PO BIDMEALS [facility] Last Admin: 04/20/17 08:18 Dose: 2.5 mg Hydroxyzine HCl (Atarax) 25 mg PO BEDTIME PRN PRN Reason: Insomnia Latanoprost (Xalatan 0.005% Ophth Soln) 0 ml EYEBOTH BEDTIME [facility] Last Admin: 04/19/17 20:29 Dose: 1 drop Metformin HCl (Glucophage) 1,000 mg PO BIDMEALS [facility] Last Admin: 04/20/17 08:50 Dose: 1,000 mg Pantoprazole Sodium (Protonix) 40 mg PO ACBREAKFAST [facility] Last Admin: 04/20/17 08:18 Dose: 40 mg Potassium Chloride (Klor-Con 10) 10 meq PO DAILY [facility] Last Admin: 04/20/17 08:51 Dose: 10 meq Pyridoxine HCl (Vitamin B6-Pyridoxine) 100 mg PO DAILY [facility] Last Admin: 04/20/17 08:54 Dose: 100 mg Senna/Docusate Sodium (Senna Plus) 2 tab PO BEDTIME [facility] Last Admin: 04/19/17 20:29 Dose: Not Given Tramadol HCl (Ultram) 50 mg PO Q4H PRN PRN Reason: PAIN (-04/14) Triamterene/HCTZ (Maxzide 50-75 Mg) 1 each PO DAILY [facility] Last Admin: 04/20/17 08:53 Dose: 1 each Discontinued Medications Acetaminophen (Tylenol) 650 mg PO Q6H [facility] Last Admin: 04/18/17 14:18 Dose: 650 mg Carboxymethylcellulose (Refresh Optive) 0 ml EYEBOTH Q4H PRN PRN Reason: Dry Eyes Celecoxib (Celebrex) 200 mg PO BID [facility] Stop: 04/18/17 09:01 Last Admin: 04/18/17 09:07 Dose: 200 mg Celecoxib (Celebrex) Confirm Administered Dose 200 mg .ROUTE .STK-MED ONE Stop: 04/17/17 21:19 Last Admin: 04/17/17 21:32 Dose: Not Given Hydroxyzine Pamoate (Vistaril) 25 mg PO BEDTIME PRN PRN Reason: Insomnia Influenza Virus Vaccine (Fluzone Quad [id number]) 60 mcg IM .ONCE ONE Stop: 04/13/17 14:16 Last Admin: 04/13/17 14:34 Dose: 60 mcg Latanoprost (Xalatan 0.005% Ophth Soln) 0 ml EYEBOTH BEDTIME [facility] Last Admin: 04/13/17 22:16 Dose: 1 drop Valacyclovir HCl (Valtrex) 2,000 mg PO BID [facility] Stop: 04/17/17 21:01 Last Admin: 04/17/17 21:22 Dose: 2,000 mg - Exam General: Reports: Alert, Oriented, Cooperative HEENT: Reports: Pupils Equal, Pupils Reactive Neck: Reports: Supple Lungs: Reports: Clear to Auscultation, Normal Respiratory Effort Cardiovascular: Reports: Regular Rate, Regular Rhythm, No Murmurs GI/Abdominal Exam: Normal Bowel Sounds, Soft, Non-Tender Psy/Mental Status: Reports: Alert *Q Meaningful Use (DIS) - VTE *Q VTE Criteria *Q: - Stroke *Q Stroke Criteria *Q: - AMI *Q AMI Criteria *Q:
[2017-04-20 10:31] VITALS: BP 112/62
[2017-05-13] MEDS ORDERED: Aspirin 325 MG Tab PO SCH (09:00)
== END 2017-04-20 11:35 | disposition home or self-care (01) | DRG 561 ==
LOC: FB.MS 13:13
PROVIDERS: ADMIT Family Medicine; ATTEND Family Medicine
DX: Z47.1 Aftercare following joint replacement surgery (principal); Z98.890 Other specified postprocedural states; Z96.643 Presence of artificial hip joint, bilateral; Z23 Encounter for immunization; E11.9 Type 2 diabetes mellitus without complications; I10 Essential (primary) hypertension; E78.5 Hyperlipidemia, unspecified; F39 Unspecified mood [affective] disorder; B00.1 Herpesviral vesicular dermatitis; Z79.82 Long term (current) use of aspirin; Z79.84 Long term (current) use of oral hypoglycemic drugs; Z88.1 Allergy status to other antibiotic agents; Z88.5 Allergy status to narcotic agent
CPT/HCPCS: 81001; 82962; 90686; 97110-GO; 97110-GP; 97112-GP; 97116-GP; 97161-GP; 97165-GO; 97530-GO; 97530-GO-KX; 97535-GO; A9270-GY; G0008

== ENCOUNTER 2020-07-14 09:23 | Emergency (ER) | payer BC, MEDICARE ==
[2020-07-14] MEDS ORDERED: Sodium Chloride 0.9% 1,000 ML IV SCH (09:45)
[2020-07-14] MEDS ORDERED: Metoclopramide 10 MG/2 ML SDV IVPUSH ONE (09:49)
[2020-07-14] MEDS ORDERED: Ketorolac 30 MG/ML SDV IVPUSH ONE (09:49)
--- NOTE | 2020-07-14 09:56 | EDM.PDOC ---
ED HPI GENERAL MEDICAL PROBLEM - General Chief Complaint: Headache Stated Complaint: HEADACHE/MIGRAINE Time Seen by Provider: 07/14/20 09:35 Source of Information: Reports: Patient History Limitations: Reports: No Limitations - History of Present Illness INITIAL COMMENTS - FREE TEXT/NARRATIVE: c/o MACIEL x 2.5h lives with dtr, had a normal day yesterday, ate supper, went to bed at 10:30p, felt fine, usually gets up at 9a however, awoke 7a and had a bifrontal MACIEL, took no meds, no n/v, did not eat no f/c/d has a h/o migraines altho not recently b/l, not one sided no rhinorrhea last labs in [facility] 3y ago, last head CT 7y ago Headache Pain Score (Numeric/FACES): 5 - Related Data Allergies Allergy/AdvReac Type Severity Reaction Status Date / Time ciprofloxacin [From Cipro] Allergy Swollen Verified 04/13/17 12:20 Tongue ciprofloxacin HCl Allergy Swollen Verified 04/13/17 12:20 [From Cipro] Tongue hydrocodone Allergy Swollen Verified 04/13/17 12:20 Tongue Home Meds: Home Meds Dorzolamide/Timolol [Cosopt 2%-0.5% Ophth Soln] 1 drop EYEBOTH BID 06/21/13 [History] Latanoprost 1 drop EYEBOTH BEDTIME 06/21/13 [History] Potassium Chloride 10 meq PO DAILY 06/21/13 [History] atorvaSTATin [Lipitor] 20 mg PO DAILY 06/21/13 [History] Azelastine [Optivar 0.05% Ophth Soln] 1 drop EYEBOTH BID 09/04/16 [History] Calcium Citrate/Vitamin D3 [Citracal + D Maximum Caplet] 1 tab PO DAILY 09/04/16 [History] Carboxymethyl/Glycerin/Poly80 [Refresh Optive Advanced Drops] 1 drop EYEBOTH Q4H PRN 09/04/16 [History] ClonazePAM [KlonoPIN] 1 - 2 mg PO BEDTIME PRN 09/04/16 [History] Omeprazole Magnesium [Prilosec Otc] 20 mg PO DAILY #30 tablet. 09/04/16 [Rx] Triamterene/Hydrochlorothiazid [Triamterene-HCTZ 75-50 MG] 1 tab PO DAILY 09/04/16 [History] Citalopram [Citalopram HBr] 20 mg PO DAILY 04/13/17 [History] Pyridoxine HCl (Vitamin B6) [Vitamin B-6] 100 mg PO DAILY 04/13/17 [History] Sennosides/Docusate Sodium [Senna-S Tablet] 2 tab PO BEDTIME 04/13/17 [History] glipiZIDE [Glucotrol] 2.5 mg PO BIDMEALS 04/13/17 [History] metFORMIN [Glucophage] 1,000 mg PO BIDMEALS 04/13/17 [History] Acetaminophen [Tylenol] 650 mg PO Q6H PRN tablet 04/20/17 [Rx] Aspirin 325 mg PO DAILY tablet 04/20/17 [Rx] Past Medical History HEENT History: Reports: Allergic Rhinitis, Glaucoma Cardiovascular History: Reports: High Cholesterol, Hypertension Gastrointestinal History: Reports: Chronic Constipation, GERD, Hemorrhoids, Hiatal Hernia, Irritable Bowel Syndrome Genitourinary History: Reports: Urinary Incontinence, Other (See Below) Other Genitourinary History: stress incontinence [employer] History: Reports: Musculoskeletal History: Reports: Arthritis, Fibromyalgia Other Musculoskeletal History: NECK, HIP AND KNEES Psychiatric History: Reports: Depression Endocrine/Metabolic History: Reports: Diabetes, Type II - Infectious Disease History Infectious Disease History: Reports: Chicken Pox, Measles, Mumps, Pertussis (Whooping Cough) - Past Surgical History HEENT Surgical History: Reports: Cataract Surgery GI Surgical History: Reports: Appendectomy, Colonoscopy, EGD Female Surgical History: Reports: Hysterectomy Musculoskeletal Surgical History: Reports: Joint Replacement Other Musculoskeletal Surgeries/Procedures:: right hip Social & Family History - Family History Family Medical History: No Pertinent Family History - Tobacco Use Tobacco Use Status *Q: Never Tobacco User - Caffeine Use Caffeine Use: Reports: Soda - Recreational Drug Use Recreational Drug Use: No ED ROS GENERAL - Review of Systems Review Of Systems: See Below Constitutional: Reports: No Symptoms HEENT: Reports: No Symptoms Respiratory: Reports: No Symptoms Cardiovascular: Reports: No Symptoms Endocrine: Reports: No Symptoms GI/Abdominal: Reports: No Symptoms : Reports: No Symptoms Musculoskeletal: Reports: No Symptoms Skin: Reports: No Symptoms Neurological: Reports: No Symptoms, Headache Psychiatric: Reports: No Symptoms Hematologic/Lymphatic: Reports: No Symptoms Immunologic: Reports: No Symptoms ED EXAM, NEURO - Physical Exam Exam: See Below Exam Limited By: No Limitations General Appearance: Alert, WD/WN, No Apparent Distress, Other (alert, pleasant, nonill, nl speech, good eye contact, followed instructions readily) Eye Exam: Bilateral Eye: EOMI, PERRL, Other Ears: Normal External Exam, Normal Canal, Hearing Grossly Normal Nose: Normal Inspection, Normal Mucosa, No Blood Throat/Mouth: Normal Inspection, Normal Lips, Normal Teeth, Normal Gums, Normal Oropharynx, Normal Voice, No Airway Compromise Head Exam: Atraumatic, Normocephalic, Other (temporal arteries NT) Neck: Normal Inspection, Supple, Non-Tender, Full Range of Motion. No: Lymphadenopathy (R), Lymphadenopathy (L) Respiratory/Chest: No Respiratory Distress, Lungs Clear, Normal Breath Sounds, No Accessory Muscle Use, Chest Non-Tender Cardiovascular: Regular Rate, Rhythm, No Edema, No Gallop, No JVD, No Murmur, No Rub GI/Abdominal: Soft, Non-Tender Neurological: Alert, Normal Mood/Affect, Normal Dorsiflexion, CN II-XII Intact, Normal Gait, No Motor/Sensory Deficits, Oriented x 3 Back Exam: Normal Inspection, Full Range of Motion. No: CVA Tenderness (L) Extremities: Normal Inspection, Normal Range of Motion, Non-Tender, No Pedal Edema Psychiatric: Anxious Skin Exam: Warm, Dry, Intact, Normal Color, No Rash Course - Vital Signs Last Recorded V/S: Last Vital Signs Temp 36.6 C 07/14/20 09:38 Pulse 73 07/14/20 11:10 Resp 18 07/14/20 11:10 BP 151/78 H 07/14/20 11:10 Pulse Ox 98 07/14/20 11:10 - Orders/Labs/Meds Orders: Active Orders 24 hr Category Date Time Status Head wo Cont [CT] Stat Exams 07/14/20 09:47 Ordered Sodium Chloride 0.9% [Normal Saline] 1,000 ml Med 07/14/20 09:45 Ordered IV ASDIRECTED Medication Orders Sodium Chloride (Normal Saline) 1,000 mls @ 999 mls/hr IV ASDIRECTED [facility] Last Admin: 07/14/20 10:14 Dose: 999 mls/hr Documented by: KENDALL Labs: Laboratory Tests 07/14/20 07/14/2021 Range/Units 09:46 09:55 09:55 WBC 6.4 (3.0-10.3) x10-3/uL RBC 4.51 (3.60-5.20) x10(6)uL Hgb 13.0 (11.4-15.5) g/dL Hct 40.2 (34.2-48.2) % MCV 89.1 (76.7-100.5) fL MCH 28.8 (23.9-33.9) pg MCHC 32.3 (31.9-34.8) g/dL RDW 13.7 (12.3-16.5) % Plt Count 237 (151-488) x10(3)uL MPV 7.6 (7.1-12.4) fL Neut % (Auto) 70.0 (30.8-76.2) % Lymph % (Auto) 18.8 (18.4-52.1) % Saunders % (Auto) 6.6 (4.4-15.7) % Eos % (Auto) 3.9 (0.6-8.1) % Baso % (Auto) 0.7 (0.2-1.5) % Neut # (Auto) 4.5 (1.5-6.3) x10-3/uL Lymph # (Auto) 1.2 (1.0-4.4) x10-3/uL Saunders # (Auto) 0.4 (0.3-1.0) x10-3/uL Eos # (Auto) 0.3 (0.0-0.8) x10-3/uL Baso # (Auto) 0.0 (0.0-0.1) x10-3/uL Sodium 137 (135-145) mmol/L Potassium 4.1 (3.5-5.3) mmol/L Chloride 101 (100-110) mmol/L Carbon Dioxide 25 (21-32) mmol/L BUN 16 (7-18) mg/dL Creatinine 1.1 H (0.55-1.02) mg/dL Est Cr Clr Drug Dosing TNP Estimated GFR (MDRD) 47 L (>60) BUN/Creatinine Ratio 14.5 (9-20) Glucose 213 H (80-116) mg/dL Calcium 9.3 (8.6-10.2) mg/dL Total Bilirubin 0.7 (0.1-1.3) mg/dL AST 26 H (5-25) IU/L ALT 42 H (12-36) U/L Alkaline Phosphatase 35 L (56-112) IU/L C-Reactive Protein (0.5-0.9) mg/dL Total Protein 7.0 (6.0-8.0) g/dL Albumin 3.9 (3.2-4.6) g/dL Globulin 3.1 g/dL Albumin/Globulin Ratio 1.3 Urine Color Yellow (YELLOW) Urine Appearance Clear (CLEAR) Urine pH 5.0 (5.0-6.5) Ur Specific [place] 1.020 (1.010-1.025) Urine Protein Negative (NEGATIVE) mg/dL Urine Glucose (UA) Normal (NORMAL) mg/dL Urine Ketones Negative (NEGATIVE) mg/dL Urine Occult Blood Negative (NEGATIVE) Urine Nitrite Negative (NEGATIVE) Urine Bilirubin Negative (NEGATIVE) Urine Urobilinogen Normal (NEGATIVE) mg/dL Ur Leukocyte Esterase Negative (NEGATIVE) Urine WBC 0-5 (0-5) Ur Squamous Epith Cells Few H (NS,R,O) Urine Bacteria Few H (NS) 07/14/20 Range/Units 09:55 WBC (3.0-10.3) x10-3/uL RBC (3.60-5.20) x10(6)uL Hgb (11.4-15.5) g/dL Hct (34.2-48.2) % MCV (76.7-100.5) fL MCH (23.9-33.9) pg MCHC (31.9-34.8) g/dL RDW (12.3-16.5) % Plt Count (151-488) x10(3)uL MPV (7.1-12.4) fL Neut % (Auto) (30.8-76.2) % Lymph % (Auto) (18.4-52.1) % Saunders % (Auto) (4.4-15.7) % Eos % (Auto) (0.6-8.1) % Baso % (Auto) (0.2-1.5) % Neut # (Auto) (1.5-6.3) x10-3/uL Lymph # (Auto) (1.0-4.4) x10-3/uL Saunders # (Auto) (0.3-1.0) x10-3/uL Eos # (Auto) (0.0-0.8) x10-3/uL Baso # (Auto) (0.0-0.1) x10-3/uL Sodium (135-145) mmol/L Potassium (3.5-5.3) mmol/L Chloride (100-110) mmol/L Carbon Dioxide (21-32) mmol/L BUN (7-18) mg/dL Creatinine (0.55-1.02) mg/dL Est Cr Clr Drug Dosing Estimated GFR (MDRD) (>60) BUN/Creatinine Ratio (9-20) Glucose (80-116) mg/dL Calcium (8.6-10.2) mg/dL Total Bilirubin (0.1-1.3) mg/dL AST (5-25) IU/L ALT (12-36) U/L Alkaline Phosphatase (56-112) IU/L C-Reactive Protein 0.2 L (0.5-0.9) mg/dL Total Protein (6.0-8.0) g/dL Albumin (3.2-4.6) g/dL Globulin g/dL Albumin/Globulin Ratio Urine Color (YELLOW) Urine Appearance (CLEAR) Urine pH (5.0-6.5) Ur Specific [place] (1.010-1.025) Urine Protein (NEGATIVE) mg/dL Urine Glucose (UA) (NORMAL) mg/dL Urine Ketones (NEGATIVE) mg/dL Urine Occult Blood (NEGATIVE) Urine Nitrite (NEGATIVE) Urine Bilirubin (NEGATIVE) Urine Urobilinogen (NEGATIVE) mg/dL Ur Leukocyte Esterase (NEGATIVE) Urine WBC (0-5) Ur Squamous Epith Cells (NS,R,O) Urine Bacteria (NS) Meds: Medications Generic Name Dose Route Start Last Admin Trade Name Freq PRN Reason Stop Dose Admin Sodium Chloride 1,000 mls @ 999 mls/hr 07/14/20 09:45 07/14/20 10:14 Normal Saline IV 999 mls/hr ASDIRECTED [facility] Administration Discontinued Medications Generic Name Dose Route Start Last Admin Trade Name Freq PRN Reason Stop Dose Admin Acetaminophen 1,000 mg 07/14/20 11:27 07/14/20 11:42 Tylenol Extra Strength PO 07/14/20 11:28 1,000 mg ONETIME ONE Administration Ketorolac Tromethamine 15 mg 07/14/20 09:49 07/14/20 10:12 Toradol IVPUSH 07/14/20 09:50 15 mg ONETIME ONE Administration Methylprednisolone Sodium Succinate 125 mg 07/14/20 11:27 07/14/20 11:42 Solu-Medrol IVPUSH 07/14/20 11:28 125 mg ONETIME ONE Administration Metoclopramide HCl 10 mg 07/14/20 09:49 07/14/20 10:10 Reglan IVPUSH 07/14/20 09:50 10 mg ONETIME ONE Administration Morphine Sulfate 2 mg 07/14/20 11:28 Morphine IVPUSH 07/14/20 11:29 ONETIME ONE - Re-Assessments/Exams Free Text/Narrative Re-Assessment/Exam: 07/14/20 12:09 pain down to 2/10 after meds and pt sitting on edge of bed and ready to leave typical tension MACIEL by hx in pt with poorly controlled DM head CT with no acute process, no sinus issues, no clinical evidence of a vascular or cerebral MACIEL, no other active medical issues identified, no evidence of infection does have mild inc'd LFTs which is likely baseline, no comparison, pt agrees to d/w PCP further Departure - Departure Time of Disposition: 12:06 Disposition: Home, Self-Care 01 Condition: Good Clinical Impression: Tension-type headache, Diabetes mellitus with hyperglycemia, Elevated liver function tests - Discharge Information *PRESCRIPTION DRUG MONITORING PROGRAM REVIEWED*: Not Applicable *COPY OF PRESCRIPTION DRUG MONITORING REPORT IN PATIENT ETIENNE: Not Applicable Instructions: Tension Headache, Adult Forms: ED Department Discharge Additional Instructions: For headache, increase your acetaminophen from 2 tabs 2 times a day to 2 tabs 4 times a day for the next 2 days, longer if needed. Use ice for 10 minutes to forehead every 2 hours if you continue to have pain. Get adequate rest. Maintain fluids. Continue current meds. See Dr Bridges in the next 3-4 days. Return to Emergency Department if you are feeling worse. Sepsis Event Note (ED) - Evaluation Sepsis Screening Result: No Definite Risk - Focused Exam Vital Signs: Vital Signs Temp Pulse Resp BP Pulse Ox 07/14/20 11:10 73 18 151/78 H 98 07/14/20 09:38 36.6 C 64 16 147/74 H 100 - My Orders Last 24 Hours: My Active Orders 07/14/20 09:45 Sodium Chloride 0.9% [Normal Saline] 1,000 ml IV ASDIRECTED 07/14/20 09:47 Head wo Cont [CT] Stat - Assessment/Plan Last 24 Hours: My Active Orders 07/14/20 09:45 Sodium Chloride 0.9% [Normal Saline] 1,000 ml IV ASDIRECTED 07/14/20 09:47 Head wo Cont [CT] Stat
[2020-07-14 11:19] VITALS: BP 151/78; PULSE 73
[2020-07-14] MEDS ORDERED: methylPREDNISolone Sodium Succinate 125 MG/2 ML SDV IVPUSH ONE (11:27)
[2020-07-14] MEDS ORDERED: Acetaminophen 500 MG Tab PO ONE (11:27)
[2020-07-14] MEDS ORDERED: Morphine 2 MG/ML SYRINGE IVPUSH ONE (11:28)
== END 2020-07-14 12:24 | disposition home or self-care (01) ==
LOC: FB.ED 09:23
DX: G44.209 Tension-type headache, unspecified, not intractable (principal); E11.65 Type 2 diabetes mellitus with hyperglycemia; R79.89 Other specified abnormal findings of blood chemistry; E78.00 Pure hypercholesterolemia, unspecified; I10 Essential (primary) hypertension; E11.9 Type 2 diabetes mellitus without complications; M19.90 Unspecified osteoarthritis, unspecified site; K21.9 Gastro-esophageal reflux disease without esophagitis; Z88.1 Allergy status to other antibiotic agents; Z88.5 Allergy status to narcotic agent; Z79.82 Long term (current) use of aspirin; Z79.84 Long term (current) use of oral hypoglycemic drugs; Z79.899 Other long term (current) drug therapy
CPT/HCPCS: 36415; 70450; 80053; 81001; 85025; 86140; 96374; 96375; 99284-25; A9270-GY; J1885; J2765; J2930; J7030

== ENCOUNTER 2021-03-10 21:03 | Emergency (ER) | payer MEDICARE ==
--- NOTE | 2021-03-10 21:21 | EDM.PDOC ---
ED HPI GENERAL MEDICAL PROBLEM - General Stated Complaint: FELL/HIT HEAD+SHOULDER Time Seen by Provider: 03/10/21 21:17 Source of Information: Reports: Patient History Limitations: Reports: No Limitations - History of Present Illness INITIAL COMMENTS - FREE TEXT/NARRATIVE: 85-year-old female who reports that she let her little dog outside to go to the bathroom and the dog was having trouble getting up the stairs and she went down the stairs (4 stairs and was coming up the stairs and apparently lost her balance and fell backwards striking her occiput on the concrete. He had no loss of consciousness. She does have some headache and she also has some posterior neck pain. She also has some left shoulder pain. This occurred at approximately 8 PM. The patient is complaining of some sharp and aching type pain in her occiput and her neck and she rates that pain as a 6-7/10. There has been no nausea or vomiting. She denies any vision problems. No weakness or dizziness prior to this. She states she was feeling completely well prior to this occurring. She was somewhat dazed after the fall but that has basically resolved. She has no arm or leg weakness. She has no hip or back pain. She has no leg pains. She presents to the emergency department via private vehicle her daughter. She has had no dysuria or hematuria. She has no abdominal pain. There are no other associated signs or symptoms. There are no other modifying factors. Onset: Today (8 PM.) Duration: Constant Location: Reports: Head, Neck, Upper Extremity, Left Quality: Reports: Ache, Sharp Severity: Moderate Improves with: Reports: Rest Worsens with: Reports: Other (Palpation.), Movement Context: Reports: Trauma Associated Symptoms: Reports: No Other Symptoms (Except as above.) Treatments [employer]: Reports: Other (see below) (Nothing.) Posterior Head Pain Score (Numeric/FACES): 8 Left Shoulder Pain Score (Numeric/FACES): 4 - Related Data Allergies Allergy/AdvReac Type Severity Reaction Status Date / Time ciprofloxacin [From Cipro] Allergy Swollen Verified 04/13/17 12:20 Tongue ciprofloxacin HCl Allergy Swollen Verified 04/13/17 12:20 [From Cipro] Tongue hydrocodone Allergy Swollen Verified 04/13/17 12:20 Tongue Home Meds: Home Meds Dorzolamide/Timolol [Cosopt 2%-0.5% Ophth Soln] 1 drop EYEBOTH BID 06/21/13 [History] Latanoprost 1 drop EYEBOTH BEDTIME 06/21/13 [History] Potassium Chloride 10 meq PO DAILY 06/21/13 [History] atorvaSTATin [Lipitor] 20 mg PO DAILY 06/21/13 [History] Azelastine [Optivar 0.05% Ophth Soln] 1 drop EYEBOTH BID 09/04/16 [History] Calcium Citrate/Vitamin D3 [Citracal + D Maximum Caplet] 1 tab PO DAILY 09/04/16 [History] Carboxymethyl/Glycerin/Poly80 [Refresh Optive Advanced Drops] 1 drop EYEBOTH Q4H PRN 09/04/16 [History] ClonazePAM [KlonoPIN] 1 - 2 mg PO BEDTIME PRN 09/04/16 [History] Omeprazole Magnesium [Prilosec Otc] 20 mg PO DAILY #30 tablet. 09/04/16 [Rx] Triamterene/Hydrochlorothiazid [Triamterene-HCTZ 75-50 MG] 1 tab PO DAILY 09/04/16 [History] Citalopram [Citalopram HBr] 20 mg PO DAILY 04/13/17 [History] Pyridoxine HCl (Vitamin B6) [Vitamin B-6] 100 mg PO DAILY 04/13/17 [History] Sennosides/Docusate Sodium [Senna-S Tablet] 2 tab PO BEDTIME 04/13/17 [History] glipiZIDE [Glucotrol] 2.5 mg PO BIDMEALS 04/13/17 [History] metFORMIN [Glucophage] 1,000 mg PO BIDMEALS 04/13/17 [History] Acetaminophen [Tylenol] 650 mg PO Q6H PRN tablet 04/20/17 [Rx] Aspirin 325 mg PO DAILY tablet 04/20/17 [Rx] Past Medical History HEENT History: Reports: Allergic Rhinitis, Glaucoma Cardiovascular History: Reports: High Cholesterol, Hypertension Gastrointestinal History: Reports: Chronic Constipation, GERD, Hemorrhoids, Hiatal Hernia, Irritable Bowel Syndrome Genitourinary History: Reports: Urinary Incontinence, Other (See Below) Other Genitourinary History: stress incontinence Musculoskeletal History: Reports: Arthritis, Fibromyalgia Other Musculoskeletal History: NECK, HIP AND KNEES Psychiatric History: Reports: Depression Endocrine/Metabolic History: Reports: Diabetes, Type II - Infectious Disease History Infectious Disease History: Reports: Chicken Pox, Measles, Mumps, Pertussis (Whooping Cough) - Past Surgical History HEENT Surgical History: Reports: Cataract Surgery GI Surgical History: Reports: Appendectomy, Colonoscopy, EGD Female Surgical History: Reports: Hysterectomy Musculoskeletal Surgical History: Reports: Hip Replacement (Bilateral total hip replacement), Joint Replacement Other Musculoskeletal Surgeries/Procedures:: right hip Social & Family History - Tobacco Use Tobacco Use Status *Q: Unknown Ever Used Tobacco (Nonsmoker.) - Caffeine Use Caffeine Use: Reports: Soda - Alcohol Use Alcohol Use History: No - Living Situation & Occupation Occupation: Retired Social History Comment: She lives with her daughter. ED ROS GENERAL - Review of Systems Review Of Systems: See Below Constitutional: Denies: Fever, Chills HEENT: Reports: Other (No trouble swallowing.). Denies: Throat Pain Respiratory: Denies: Shortness of Breath, Cough Cardiovascular: Denies: Chest Pain, Lightheadedness GI/Abdominal: Denies: Abdominal Pain, Difficulty Swallowing, Nausea, Vomiting : Denies: Dysuria, Frequency Musculoskeletal: Reports: Neck Pain, Shoulder Pain (Left). Denies: Back Pain Skin: Denies: Rash, Wound Neurological: Reports: Headache. Denies: Dizziness Hematologic/Lymphatic: Denies: Easy Bleeding, Easy Bruising ED EXAM, GENERAL - Physical Exam Exam: See Below General Appearance: Alert, WD/WN, Moderate Distress Eye Exam: Bilateral Eye: EOMI, Normal Inspection, PERRL Ears: Normal External Exam, Hearing Loss Ear Exam: Bilateral Ear: Auricle Normal Nose: Normal Inspection, Normal Mucosa, No Blood Throat/Mouth: Normal Inspection, Normal Oropharynx, Normal Voice, No Airway Compromise Head: Normocephalic, Other (There is over her occiput). No: Facial Swelling, Facial Tenderness Neck: Tender Midline, Other (No crepitus. No bony deformity.) Respiratory/Chest: No Respiratory Distress, Lungs Clear, Normal Breath Sounds, No Accessory Muscle Use, Chest Non-Tender Cardiovascular: Normal Peripheral Pulses, Regular Rate, Rhythm, No Murmur Peripheral Pulses: 2+: Radial (L), Radial (R), Dorsalis Pedis (L), Dorsalis Pedis (R) GI/Abdominal: Normal Bowel Sounds, Soft, Non-Tender, No Mass, Pelvis Stable Back Exam: Normal Inspection, Full Range of Motion. No: Paraspinal Tenderness, Vertebral Tenderness Extremities: Normal Inspection, Normal Range of Motion, Non-Tender, No Pedal Edema, Normal Capillary Refill Neurological: Alert, Oriented, CN II-XII Intact, Normal Cognition, No Motor/Sensory Deficits Skin Exam: Warm, Dry, Intact, Normal Color, No Rash Course - Vital Signs Last Recorded V/S: Last Vital Signs Temp 36.8 C 03/10/21 21:14 Pulse 68 03/10/21 23:47 Resp 18 03/10/21 21:14 BP 152/70 H 03/10/21 23:47 Pulse Ox 99 03/10/21 21:14 - Orders/Labs/Meds Orders: Active Orders 24 hr Category Date Time Status Cervical Spine wo Cont [CT] Stat Exams 03/10/21 21:31 Taken Head wo Cont [CT] Stat Exams 03/10/21 21:31 Taken Shoulder Comp Lt [CR] Stat Exams 03/10/21 21:32 Taken - Radiology Interpretation Free Text/Narrative:: CT scan of the head showed posterior parietal hematoma Mary over the scalp but no sign of fracture and no sign of underlying brain injury. This was per the [facility] radiologist. CT scan of cervical spine showed an of acute osseous injury to the cervical spine. There is grade 1 anterior subluxation of C7 on T1 which is probably degenerative. There is severe degenerative disc disease at C6-7 and C7-T1 and diffuse mild her disc degeneration elsewhere. Some mild enlargement of the right thyroid lobe which will need to be evaluated with ultrasound on an outpatient, nonemergent basis. This was per the [facility] radiologist. X-ray of the left shoulder showed no acute fracture or malalignment at the left shoulder per the [facility] radiologist. - Re-Assessments/Exams Free Text/Narrative Re-Assessment/Exam: 03/10/21 23:20: CT scans of her head and neck showed no bleeding and no fractures. There was a bit of degenerative changes in the cervical spine nothing of an acute nature. The x-ray of the left shoulder shows no fracture or malalignment. She has remained hemodynamically stable and neurologically stable thus far. I will recheck the patient now and we will remove her cervical collar. 03/10/21 23:35: The patient is awake and alert. She has remained vitally and neurologically stable. The c-collar was removed and she had range of motion in her neck with some pain but she tolerated it well. Were able to sit her up the side of the bed and she had no dizziness. She did have an episode of dizziness when she set up from the CT scans earlier but that has resolved. She is quite sore in her shoulder and her neck and in her upper back as well. The daughter will give her a dose of Tylenol tonight prior to bed. The nursing staff walked the patient and she ambulated well without any difficulty. There was no dizziness. She is stable for discharge at this point. 03/11/21 00:11: The patient has just been discharged. I was reviewing the reports and I did see that there was a mild enlargement of the right lobe of the thyroid and I had failed to mention this to the patient or to her daughter. Therefore, I did call and discuss this with the daughter. The recommendation would be that she has her mother follow-up with a primary provider and on a nonemergent, outpatient basis the thyroid gland need to have an ultrasound performed. She voices understanding of this and will tell her mother and help her arrange for follow-up in the future. Departure - Departure Time of Disposition: 23:37 Disposition: Home, Self-Care 01 Condition: Good (Stable.) Clinical Impression: Thyromegaly Fall down stairs Qualifiers: Encounter type: initial encounter Qualified Code(s): W10.8XXA - Fall (on) (from) other stairs and steps, initial encounter Contusion of occipital region of scalp Qualifiers: Encounter type: initial encounter Qualified Code(s): S00.03XA - Contusion of scalp, initial encounter Cervical strain, acute Qualifiers: Encounter type: initial encounter Qualified Code(s): S16.1XXA - Strain of muscle, fascia and tendon at neck level, initial encounter Degenerative joint disease of cervical spine Qualifiers: Spinal osteoarthritis complication: unspecified spinal osteoarthritis Qualified Code(s): M47.812 - Spondylosis without myelopathy or radiculopathy, cervical region - Discharge Information Instructions: Fall Prevention in the Home, Adult, [id number], Facial or Scalp Contusion, [id number], Muscle Strain, [id number], Head Injury, Adult, [id number] Referrals: Shaggy Chow MD [Primary Care Provider] - Forms: ED Department Discharge Additional Instructions: The CT scans of your head and neck showed no fractures and no bleeding. You do have quite a bit of degenerative arthritis in your neck. Your left shoulder x- ray showed no evidence of fracture. He did not appear to have any significant head injury at this time. You appear to have bruises to your head and shoulder and strain to your neck. You can take Tylenol 1000 mg by mouth every 6 hours as needed for pain. You should probably have some help with walking for the next few days. Back to the emergency department for unrelenting vomiting, marked increase in headache or neck pain, arm or leg weakness or any other concerning signs or symptoms. Sepsis Event Note (ED) - Focused Exam Vital Signs: Vital Signs Temp Pulse Resp BP Pulse Ox 03/10/21 23:47 68 152/70 H 03/10/21 21:14 36.8 C 74 18 163/72 H 99 - My Orders Last 24 Hours: My Active Orders 03/10/21 21:31 Cervical Spine wo Cont [CT] Stat Head wo Cont [CT] Stat 03/10/21 21:32 Shoulder Comp Lt [CR] Stat - Assessment/Plan Last 24 Hours: My Active Orders 03/10/21 21:31 Cervical Spine wo Cont [CT] Stat Head wo Cont [CT] Stat 03/10/21 21:32 Shoulder Comp Lt [CR] Stat
[2021-03-10 23:58] VITALS: BP 152/70; PULSE 68
== END 2021-03-10 23:47 | disposition home or self-care (01) ==
LOC: FB.ED 21:03
DX: S16.1XXA Strain of muscle, fascia and tendon at neck level, initial encounter (principal); S00.03XA Contusion of scalp, initial encounter; M47.812 Spondylosis without myelopathy or radiculopathy, cervical region; E01.0 Iodine-deficiency related diffuse (endemic) goiter; M25.512 Pain in left shoulder; E78.00 Pure hypercholesterolemia, unspecified; I10 Essential (primary) hypertension; K21.9 Gastro-esophageal reflux disease without esophagitis; E11.9 Type 2 diabetes mellitus without complications; Z88.1 Allergy status to other antibiotic agents; Z88.5 Allergy status to narcotic agent; Z79.82 Long term (current) use of aspirin; Z79.84 Long term (current) use of oral hypoglycemic drugs; Z79.899 Other long term (current) drug therapy; W10.9XXA Fall (on) (from) unspecified stairs and steps, initial encounter
CPT/HCPCS: 70450; 72125; 73030-LT; 99284-25

== ENCOUNTER 2021-09-21 14:08 | Emergency (ER) | payer MEDICARE ==
[2021-09-21] MEDS ORDERED: Acetaminophen/HYDROcodone 325-5 MG Tab PO ONE (14:09)
[2021-09-21] MEDS ORDERED: Acetaminophen/HYDROcodone 325-7.5 MG Tab PO PRN (15:04)
[2021-09-21] MEDS ORDERED: Ondansetron 4 MG Tab.DIS PO PRN (15:06)
[2021-09-21] MEDS ORDERED: Acetaminophen/HYDROcodone 325-7.5 MG Tab PO STA (15:08)
[2021-09-21] MEDS ORDERED: Ondansetron 4 MG Tab.DIS PO ONE (15:10)
[2021-09-22 11:30] VITALS: BP 136/61; PULSE 60
== END 2021-09-21 16:18 | disposition home or self-care (01) ==
LOC: FB.ED 14:08
DX: S02.2XXA Fracture of nasal bones, initial encounter for closed fracture (principal); S00.83XA Contusion of other part of head, initial encounter; E78.00 Pure hypercholesterolemia, unspecified; I10 Essential (primary) hypertension; K21.9 Gastro-esophageal reflux disease without esophagitis; E11.9 Type 2 diabetes mellitus without complications; Z88.1 Allergy status to other antibiotic agents; Z88.5 Allergy status to narcotic agent; Z79.82 Long term (current) use of aspirin; Z79.899 Other long term (current) drug therapy; W22.09XA Striking against other stationary object, initial encounter; W10.2XXA Fall (on)(from) incline, initial encounter
CPT/HCPCS: 70450; 99283; 99284; A9270; Q0162